=== PATIENT | male | born 1995 | race Caucasian/White ===

== ENCOUNTER 2020-03-27 10:13 | Emergency (ER) | payer MEDICAID ==
[~2020-03-27] VITALS: Ht 177.8 cm; Wt 83.9 kg
[2020-03-27 10:32] VITALS: BP 134/71
--- NOTE | 2020-03-27 10:36 | NUR ---
PATIENT AMBULATED TO [facility]
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
--- NOTE | 2020-03-27 11:32 | NUR ---
Pt returned back fro x-ray and placed in chair A.
--- NOTE | 2020-03-27 12:03 | NUR ---
Patient being evaluated by Dr. Carcamo in chair A.
[2020-03-27] MEDS ORDERED: KETOROLAC 60 MG/2 ML VIAL IM ONE (12:05)
[2020-03-27 12:36] VITALS: BP 128/70
--- NOTE | 2020-03-27 12:36 | NUR ---
Patient discharged with v/s stable. Written and verbal after care instructions given and explained. Patient alert, oriented and verbalized understanding of instructions. Ambulatory with steady gait. All questions addressed prior to discharge. ID band removed. Patient advised to follow up with PMD. Copy of x-ray report provided. Rx of Motrin 800mg given. Patient educated on indication of medication including possible reaction and side effects. Opportunity to ask questions provided and answered.
== END 2020-03-27 12:36 | disposition home or self-care (01) ==
LOC: MED 10:13
DX: J34.89 Other specified disorders of nose and nasal sinuses (principal); R22.0 Localized swelling, mass and lump, head; Z90.49 Acquired absence of other specified parts of digestive tract; Y04.2XXA Assault by strike against or bumped into by another person, initial encounter; Y93.89 Activity, other specified; Y92.89 Other specified places as the place of occurrence of the external cause; Y99.8 Other external cause status
CPT/HCPCS: 70150; 96372; 99283; J1885

== ENCOUNTER 2020-08-03 13:36 | Emergency (ER) | payer MEDICAID ==
[~2020-08-03] VITALS: Ht 175.3 cm; Wt 91.2 kg
[2020-08-03 13:39] VITALS: BP 111/70
--- NOTE | 2020-08-03 13:39 | NUR ---
PT AMBULATED TO BED 2.
--- NOTE | 2020-08-03 13:40 | NUR ---
25Y M c/c abd pain, n/v/d x1 day after drinking tap water that was sitting in the sun x5days. Pt reports x10 episodes of both n/d. Denies melena, hematuria, SOB, chest pain. Admits chills, cold, and feeling febrile, headache. PMH: tonsillectomy NKA SocHx: cigarette, weed, weekend alchohol.
[2020-08-03] MEDS ORDERED: ONDANSETRON 4 MG ODT PO ONE (14:00)
[2020-08-03] MEDS ORDERED: DIPHENOXYLATE /ATROPINE 2.5 MG TAB PO ONE (14:00)
[2020-08-03] MEDS ORDERED: ONDA4TAB PO (14:03)
[2020-08-03] MEDS ORDERED: ATRO1TAB PO (14:03)
[2020-08-03 14:13] VITALS: BP 111/70
--- NOTE | 2020-08-03 14:13 | NUR ---
Patient discharged with v/s stable. Written and verbal after care instructions given and explained. Patient alert, oriented and verbalized understanding of instructions. Ambulatory with steady gait. All questions addressed prior to discharge. ID band removed. Patient advised to follow up with PMD. Rx of Lomotil and Zofran given. Patient educated on indication of medication including possible reaction and side effects. Opportunity to ask questions provided and answered.
== END 2020-08-03 14:13 | disposition home or self-care (01) ==
LOC: MED 13:36
DX: R11.2 Nausea with vomiting, unspecified (principal); R19.7 Diarrhea, unspecified; R10.9 Unspecified abdominal pain; F17.210 Nicotine dependence, cigarettes, uncomplicated; F12.90 Cannabis use, unspecified, uncomplicated; Z79.899 Other long term (current) drug therapy; Z98.890 Other specified postprocedural states
CPT/HCPCS: 81002; 99283; Q0162

== ENCOUNTER 2021-07-08 10:38 | Emergency (ER) | payer MEDICAID, OTHER ==
[~2021-07-08] VITALS: Ht 175.3 cm; Wt 84.8 kg
[~2021-07-08 10:38] MED LIST: ATRO1TAB PO; ONDA4TAB PO
[2021-07-08 10:52] VITALS: BP 147/72
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
[2021-07-08] MEDS: LORazepam 1 MG TAB PO ONE (11:29)
[2021-07-08] MEDS ORDERED: NAPR-54 PO (11:34)
[2021-07-08] MEDS ORDERED: CYCL-711 PO (11:34)
[2021-07-08 11:55] LABS: BARBITURATE, URINE NEGATIVE ng/ml (NEG <=200); BENZODIAZEPINE, URINE NEGATIVE ng/mL (NEG <=200); CANNABINOID, URINE NEGATIVE ng/mL (NEG <=50); COCAINE, URINE NEGATIVE ng/mL (NEG <=300); OPIATE, URINE NEGATIVE ng/mL (NEG <=2000); PHENCYCLIDINE SCREEN,URINE NEGATIVE ng/mL (NEG <=25)
[2021-07-08 11:58] VITALS: BP 135/62
--- NOTE | 2021-07-08 12:00 | NUR ---
Patient discharged with v/s stable. Written and verbal after care instructions given and explained. Patient alert, oriented and verbalized understanding of instructions. Ambulatory with steady gait. All questions addressed prior to discharge. ID band removed. Patient advised to follow up with PMD. Rx of FLEXERIL,NAPROSYN given. Patient educated on indication of medication including possible reaction and side effects. Opportunity to ask questions provided and answered.
== END 2021-07-08 12:00 | disposition home or self-care (01) ==
LOC: MED 10:38
DX: M62.838 Other muscle spasm (principal); M54.2 Cervicalgia; F17.210 Nicotine dependence, cigarettes, uncomplicated; Z90.49 Acquired absence of other specified parts of digestive tract; Z79.899 Other long term (current) drug therapy
CPT/HCPCS: 80305; 81002; 99283

== ENCOUNTER 2022-09-07 00:20 | Emergency (ER) | payer OTHER ==
[~2022-09-07] VITALS: Ht 182.9 cm; Wt 74.8 kg
[~2022-09-07 00:20] MED LIST changes: +CYCL-711 PO; +NAPR-54 PO
[2022-09-07 00:25] VITALS: BP 130/85
--- NOTE | 2022-09-07 00:27 | NUR ---
TO LOBBY A/W BED AMBULATORY
--- NOTE | 2022-09-07 01:01 | NUR ---
PT TAKEN TO ER BED
[2022-09-07] MEDS ORDERED: AMOX500C25 PO (01:27)
[2022-09-07] MEDS ORDERED: NAPR-54 PO (01:27)
[2022-09-07] MEDS ORDERED: HYDROcodone/APAP 5/325 MG 1 TAB TAB PO ONE (01:30)
[2022-09-07] MEDS ORDERED: KETOROLAC 30 MG/ML VIAL IM ONE (01:30)
[2022-09-07 01:40] VITALS: BP 130/85
--- NOTE | 2022-09-07 01:40 | NUR ---
Patient discharged with v/s stable. Written and verbal after care instructions given and explained. Patient alert, oriented and verbalized understanding of instructions. Ambulatory with steady gait. All questions addressed prior to discharge. ID band removed. Patient advised to follow up with PMD. Rx of AMOX AND NAPROSYN given. Patient educated on indication of medication including possible reaction and side effects. Opportunity to ask questions provided and answered.
== END 2022-09-07 01:40 | disposition home or self-care (01) ==
LOC: MED 00:20
DX: K08.89 Other specified disorders of teeth and supporting structures (principal); F17.210 Nicotine dependence, cigarettes, uncomplicated; Z79.899 Other long term (current) drug therapy; Z90.49 Acquired absence of other specified parts of digestive tract
CPT/HCPCS: 96372; 99283; J1885

== ENCOUNTER 2022-10-10 14:16 | Emergency (ER) | payer OTHER ==
[~2022-10-10] VITALS: Ht 185.4 cm; Wt 91.6 kg
[~2022-10-10 14:16] MED LIST changes: +AMOX500C25 PO
[2022-10-10] MEDS ORDERED: KETOROLAC 30 MG/ML VIAL IM ONE (15:00)
[2022-10-10] MEDS ORDERED: AMOX500C25 PO (15:08)
[2022-10-10] MEDS ORDERED: IBUP-2213 PO (15:08)
[2022-10-10 15:25] VITALS: BP 139/87
--- NOTE | 2022-10-10 17:00 | NUR ---
Patient discharged with v/s stable. Written and verbal after care instructions given and explained. Patient verbalized understanding. Ambulatory with steady gait. All questions addressed prior to discharge. Advised to follow up with PMD. Pt. with no acute distress. States feeling better after medication IM given. Stable for d/c home with Rx.
== END 2022-10-10 17:00 | disposition home or self-care (01) ==
LOC: MED 14:16
DX: K01.1 Impacted teeth (principal); Z79.899 Other long term (current) drug therapy
CPT/HCPCS: 96372; 99283; J1885